=== PATIENT | female | born 2000 | race Caucasian/White ===

== ENCOUNTER 2021-02-13 17:36 | Emergency (ER) | payer OTHER ==
[~2021-02-13] VITALS: Ht 170.2 cm; Wt 90.6 kg
[2021-02-13 17:41] VITALS: BP 136/78
[2021-02-13] MEDS ORDERED: HYDR-4571 PO (17:44)
[2021-02-13] MEDS ORDERED: CEPH250T PO (17:45)
[2021-02-13] MEDS ORDERED: OXYC-517 PO (17:45)
== END 2021-02-13 20:25 | disposition left against medical advice (07) ==
LOC: M ED 17:36
DX: Z53.21 Procedure and treatment not carried out due to patient leaving prior to being seen by health care provider (principal)

== ENCOUNTER → 2022-01-19 | Outpatient (REF) | payer OTHER ==
[~2022-01-19] MED LIST: CEPH250T PO; HYDR-4571 PO; OXYC-517 PO
== END ==
LOC: M LAB REF 16:36
PROVIDERS: ATTEND Physician Assistant
DX: J02.9 Acute pharyngitis, unspecified (principal); R50.9 Fever, unspecified